=== PATIENT | female | born 1985 | race Caucasian/White ===

== ENCOUNTER 2024-08-08 09:56 | Emergency (ER) | payer OTHER ==
--- NOTE | 2024-08-08 13:33 | EDPHYS ---
Physician Documentation [facility] Name: Meceh Pak Age: 39 yrs Sex: Female : 1985 Arrival Date: 08/08/2024 Time: 09:56 Bed IW1 Private MD: ED Physician Jeff Fonseca HPI: 08/08 10:38 This 39 yrs old Female presents to ER via Ambulatory with complaints of Knee ec2 Pain - swelling right. 10:38 Patient arrives today for evaluation of right lower extremity swelling. States that she ec2 has noted prominent vasculature in her right leg, states that she is having swelling as well. Complaining of pain behind the right knee. No falls injuries or trauma or specific inciting factor. Patient reports otherwise no significant medical problems, no history of DVT.. Historical: - Allergies: 10:24 PENICILLINS; bp - Home Meds: 10:24 None [Active]; bp - PMHx: 10:24 None; bp - Immunization history:: Adult Immunizations up to date. - Infectious Disease History:: Denies. - Social history:: Smoking status: Patient denies any tobacco usage or history of. ROS: 10:38 Constitutional: as per hpi ec2 Exam: 10:38 Constitutional: GEN: NAD Head: atraumatic Eyes: EOMI Ears: External ears are ec2 normal. CV: regular rate, right lower extremity with prominent varicose veins in the medial aspect of the proximal tibia, intact distal neurovascular status. LUNGS: no respiratory distress ABD: non-distended SKIN: no evidence of rashes MSK: no evidence of trauma Vital Signs: 10:10 BP 129 / 97; Pulse 66; Resp 16; Temp 98.1; Pulse Ox 99% ; bp MDM: 10:16 Patient medically screened. ec2 10:38 Data reviewed: vital signs. ED course: Patient arrives today for evaluation of right ec2 knee pain. Examination remarkable for MSK findings as above. Will obtain ultrasound to evaluate for DVT, possible lymphedema, possible Miller's cyst.. 13:32 ED course: Patient eloped due to time of delay of radiology read.. ec2 14:07 ED course: Patient had left, patient was called, instructed her she had negative DVT ec2 ultrasound and follow-up with PCP, patient agreeable. Return precautions given.. 08/08 10:27 Order name: Extremity [facility]ous [facility] US; Complete Time: 13:53 ec2 Administered Medications: No medications were administered Disposition Summary: 08/08/24 14:07 Discharge Ordered Notes: Location: Home ec2 Condition: Stable ec2 Diagnosis - Pain in right knee(08/08/24 14:07) ec2 Followup: ec2 - With: Private Physician - When: - Reason: Recheck today's complaints, Re-evaluation by your physician Forms: - Medication Reconciliation Form ec2 - Antibiotic Education ec2 - Prescription Opioid Use ec2 - Patient Portal Instructions ec2 - Leadership Thank You Letter ec2 Signatures: Dispatcher [employer] Eamon Vera RN RN bp Jeff Fonseca MD MD ec2 Corrections: (The following items were deleted from the chart) 10:24 10:24 Allergies: No Known Allergies; bp bp 14:07 13:33 post triage evaluation and consult ec2 ec2 14:07 13:33 wait time ec2 ec2 14:07 13:33 Pain in right knee ec2 ec2
--- NOTE | 2024-08-08 13:33 | ER ---
Nurse's Notes [facility] Name: Meche Pak Age: 39 yrs Sex: Female : 1985 Arrival Date: 08/08/2024 Time: 09:56 Bed IW1 Private MD: Diagnosis: Pain in right knee Presentation: 08/08 10:10 Chief complaint: Patient states: POSTERIOR R KNEE PAIN x4 DAYS. Coronavirus screen: At bp this time, the client does not indicate any symptoms associated with coronavirus-19. Ebola Screen: No symptoms or risks identified at this time. Initial Sepsis Screen: Does the patient meet any 2 criteria? No. Patient's initial sepsis screen is negative. Does the patient have a suspected source of infection? No. Patient's initial sepsis screen is negative. Risk Assessment: Do you want to hurt yourself or someone else? Patient reports no desire to harm self or others. Onset of symptoms is unknown. 10:10 Method Of Arrival: Ambulatory bp 10:10 Acuity: KYAW 3 bp Triage Assessment: 10:10 General: Appears uncomfortable, Behavior is calm, cooperative, appropriate for age. bp 10:10 Pain: Complains of pain in posterior aspect of right knee. EENT: No deficits noted. bp Neuro: No deficits noted. Cardiovascular: No deficits noted. Musculoskeletal: No deficits noted. Historical: - Allergies: 10:24 PENICILLINS; bp - Home Meds: 10:24 None [Active]; bp - PMHx: 10:24 None; bp - Immunization history:: Adult Immunizations up to date. - Infectious Disease History:: Denies. - Social history:: Smoking status: Patient denies any tobacco usage or history of. Screenin:10 [facility] ED Fall Risk Assessment (Adult) History of falling in the last 3 months, bp including since admission No falls in past 3 months (0 pts) Confusion or Disorientation No (0 pts) Intoxicated or Sedated No (0 pts) Impaired Gait No (0 pts) Mobility Assist Device Used No (0 pt) Altered Elimination No (0 pt) Score/Fall Risk Level 0 - 2 = Low Risk. Abuse screen: Denies threats or abuse. Denies injuries from another. Nutritional screening: No deficits noted. Tuberculosis screening: No symptoms or risk factors identified. Assessment: 13:45 Reassessment: PT NOTIFIED BY PHONE OF UNREMARKABLE U/S RESULTS. bp Vital Signs: 10:10 BP 129 / 97; Pulse 66; Resp 16; Temp 98.1; Pulse Ox 99% ; bp ED Course: 10:00 Patient arrived in ED. im 10:03 Jeff Fonseca MD is Attending Physician. ec2 10:10 Arm band placed on. bp 10:10 Patient has correct armband on for positive identification. bp 10:24 Triage completed. bp 11:04 Provided Education on: N/A. bp 11:04 No provider procedures requiring assistance completed. Patient did not have IV access bp during this emergency room visit. 11:08 Extremity Venous [facility] [employer] US In Process Unspecified. EDMS Administered Medications: No medications were administered Medication: 11:04 VIS not applicable for this client. bp Outcome: 13:45 Eloped from waiting room, after seeing physician bp 13:45 Condition: stable 13:45 Discharge instructions given to patient, 14:07 Discharge ordered by MD. ec2 14:19 Patient left the ED. bp Signatures: Dispatcher [employer] EDMS Eamon Rodriguez RN RN bp Ramandeep Chacon im Jeff Fonseca MD MD ec2 Corrections: (The following items were deleted from the chart) 10:24 10:24 Allergies: No Known Allergies; bp bp 11:05 11:04 General: Appears in no apparent distress. Behavior is calm, cooperative, bp appropriate for age, bp 11:05 11:04 Discharged to home ambulatory, bp bp 11:05 11:04 Condition: stable bp bp 11:05 11:04 Discharge instructions given to patient, Instructed on discharge instructions, bp follow up and referral plans. medication usage, Demonstrated understanding of instructions, follow-up care, medications, Prescriptions given X 1, bp
--- NOTE | 2024-08-08 13:47 | RAD REPORT ---
EXAM:Extremity Venous [facility] HISTORY: Leg pain TECHNIQUE: Sonographic evaluation right lower extremity performed.Grayscale, color and spectral ana sis performed on all vessels COMPARISON: None. FINDINGS right common femoral, superficial femoral, greater saphenous, popliteal and right posterior tibial veins are compressible and demonstrate augmentation. Doppler demonstrates good flow. IMPRESSION: No evidence of deep venous thrombosis involving the right lower extremity.
[2024-08-08 14:25] VITALS: BP 129/97; TEMP 98.1; O2SAT 99
== END 2024-08-08 14:19 | disposition home or self-care (01) ==
LOC: ER 09:56
DX: M25.561 Pain in right knee (principal)
CPT/HCPCS: 93971; 99282